=== PATIENT | female | born 1990 | race American Indian/Alaskan Native ===

== ENCOUNTER 2024-01-22 15:03 | Emergency (ER) | payer MEDICAID ==
[2024-01-22 15:14] VITALS: BP 124/65; PULSE 87
[2024-01-22 15:46] LABS: HEMATOCRIT 23.8 % (37.0-47.0); HEMOGLOBIN 8.2 g/dL (12.0-16.0); MEAN CORPUSCULAR HEMOGLOBIN 28.6 pg (27.0-34.0); MEAN CORPUSCULAR HGB CONC 34.5 g/dL (33.0-35.0); MEAN CORPUSCULAR VOLUME 82.9 fL (80-100); PLATELET COUNT,PLT 164 10^3/uL (150-450); RED BLOOD CELL COUNT 2.87 10^6/uL (4.2-5.4); WHITE BLOOD CELL COUNT,WBC 31.3 10^3/uL (5.0-10.0)
[2024-01-22 15:54] LABS: BASOPHILS PERCENT AUTO 0.4 % (0.0-1.0); EOSINOPHILS PERCENT AUTO 3.3 % (1.0-3.0); LYMPHOCYTES PERCENT AUTO 7.2 % (20.5-50.1); NEUTROPHILS PERCENT AUTO 83.1 % (42.2-75.2)
[2024-01-22 16:11] LABS: B-TYPE NATRIURETIC PEPTIDE,BNP 1250 pg/ml (0-100)
[2024-01-22] MEDS: Sodium Chloride 0.9% 10 ML Syringe FLUSH PRN (16:11)
[2024-01-22 16:15] LABS: BAND PERCENT MAN 6 %; EOSINOPHILS PERCENT MAN 5 % (1-3); LACTIC ACID 1.8 mmol/L (0.4-2.0); LYMPHOCYTES PERCENT MAN 10 % (20-50); MONOCYTES PERCENT MAN 2 % (2-8); SEG NEUTROPHILS PERCENT MAN 77 % (42-75)
[2024-01-22 16:22] LABS: INR 2.9 (0.9-1.2); PROTHROMBIN TIME 28.2 SEC (9.0-12.0); PTT,PARTIAL THROMBOPLSTIN TIME 40.5 SEC (22.0-34.0)
[2024-01-22 16:34] LABS: POTASSIUM,K 3.6 mmol/L (3.5-5.1)
[2024-01-22 17:04] LABS: APPEARANCE,URINE CLEAR (CLEAR); BILIRUBIN,URINE LARGE (NEGATIVE); COLOR,URINE DARK YELLOW (YELLOW); GLUCOSE,URINE 100 (NEGATIVE); KETONES,URINE NEGATIVE (NEGATIVE); LEUKOCYTE ESTERASE,URINE NEGATIVE (NEGATIVE); NITRITE,URINE NEGATIVE (NEGATIVE); OCCULT BLOOD,URINE NEGATIVE (NEGATIVE); PH,URINE 5.5 (5.0-9.0); PROTEIN,URINE 30 (NEGATIVE); UROBILINOGEN,URINE 0.2 mg/dL (0.2-1.0)
[2024-01-22 17:09] LABS: AMPHETAMINES,URINE POSITIVE (NEGATIVE); BARBITURATES,URINE POSITIVE (NEGATIVE); BENZODIAZEPINE,URINE NEGATIVE (NEGATIVE); MDMA (ECSTASY), URINE NEGATIVE (NEGATIVE); METHADONE,URINE NEGATIVE (NEGATIVE); METHAMPHETAMINES,URINE NEGATIVE (NEGATIVE); OPIATES,URINE NEGATIVE (NEGATIVE); OXYCODONE,URINE NEGATIVE (NEGATIVE); PHENCYCLIDINE,URINE NEGATIVE (NEGATIVE); TCA,URINE NEGATIVE (NEGATIVE)
[2024-01-22 17:29] LABS: ALBUMIN 3.1 g/dL (3.4-5.0); BILIRUBIN TOTAL 41.5 mg/dL (0.2-1.0); CALCIUM 8.9 mg/dL (8.5-10.1)
[2024-01-22 17:30] LABS: ALANINE AMINOTRANSFERASE,ALT 40 U/L (14-59); ALKALINE PHOSPHATASE 119 U/L (46-116); ASPARTATE AMNIOTRANSFERASE,AST 118 U/L (15-37); C-REACTIVE PROTEIN 6.16 ng/dL (<=0.50); CARBON DIOXIDE,CO2 20 mmol/L (21-32); CHLORIDE,CL 106 mmol/L (98-107); ETHANOL BLOOD MEDICAL < 3 mg/dL (0); LIPASE > 250 U/L (16-77); MAGNESIUM 1.6 mg/dL (1.8-2.4); PHOSPHORUS 3.7 mg/dL (2.6-4.7); SODIUM,NA 143 mmol/L (136-145)
[2024-01-22 17:31] LABS: AMYLASE 254 U/L (25-115); BLOOD UREA NITROGEN,BUN 72 mg/dL (7-18); BUN/CREATININE RATIO 26.2 (No establ ref range); CREATININE 2.75 mg/dL (0.55-1.02); EST CRCL DRUG DOSING (CG) 28.03 mL/min; ESTIMATED GFR 23 mL/min (>=60); GLUCOSE RANDOM 112 mg/dL (70-99)
[2024-01-22 17:32] LABS: A/G RATIO 0.74; ANION GAP 20.3 mEq/L (7-13); PROTEIN TOTAL,TP 7.3 g/dL (6.4-8.2)
[2024-01-22 17:40] LABS: AMORPHOUS SEDIMENT,URINE FEW /HPF (NOT SEEN); BACTERIA,URINE FEW /HPF (0-FEW/HPF); EPITHELIAL CELLS,URINE FEW /HPF (NOT SEEN); MUCUS,URINE RARE /LPF (NOT SEEN); RBC,URINE NOT SEEN /HPF (0-5); WBC,URINE 0-5 /HPF (0-5/HPF)
[2024-01-22] MEDS: Piperacillin/Tazobactam 3.375 GM in Sodium Chloride 0.9% 100 ML IV ONE (17:47)
[2024-01-22] MEDS: Levofloxacin 250 MG Tab PO ONE (19:01)
[2024-01-22] MEDS: Bacitracin Oint 1 GM U/D Packet TOP ONE (19:06)
== END 2024-01-22 19:07 | disposition home or self-care (01) ==
LOC: DL.ED 15:03
DX: J18.9 Pneumonia, unspecified organism (principal); N17.9 Acute kidney failure, unspecified; N18.6 End stage renal disease; Z91.018 Allergy to other foods; Z88.8 Allergy status to other drugs, medicaments and biological substances; Z90.49 Acquired absence of other specified parts of digestive tract
CPT/HCPCS: 36415; 71045; 80053; 80305; 80307; 81001; 81025; 82140; 82150; 83605; 83690; 83735; 83880; 84100; 84145; 85025; 85610; 85730; 86140; 87040; 96365; 99284; 99285; A9270; J2543; J3490

== ENCOUNTER 2024-02-10 14:11 | Inpatient (IN) | payer MEDICAID ==
[2024-02-10] MEDS ORDERED: Sodium Chloride 0.9% 10 ML Syringe FLUSH PRN (14:24)
[2024-02-10 14:46] LABS: MEAN CORPUSCULAR HEMOGLOBIN 30.4 pg (27.0-34.0); MEAN CORPUSCULAR HGB CONC 36.5 g/dL (33.0-35.0); MEAN CORPUSCULAR VOLUME 83.5 fL (80-100); PLATELET COUNT,PLT 109 10^3/uL (150-450); WHITE BLOOD CELL COUNT,WBC 39.4 10^3/uL (5.0-10.0)
[2024-02-10 14:51] LABS: BASOPHILS PERCENT AUTO 0.2 % (0.0-1.0); EOSINOPHILS PERCENT AUTO 0.9 % (1.0-3.0); HEMATOCRIT 19.2 % (37.0-47.0); MONOCYTES PERCENT AUTO 7.7 % (2-8); NEUTROPHILS PERCENT AUTO 81.2 % (42.2-75.2)
[2024-02-10 15:02] LABS: INR 3.1 (0.9-1.2); PROTHROMBIN TIME 29.5 SEC (9.0-12.0)
[2024-02-10 15:13] LABS: LACTIC ACID 1.6 mmol/L (0.4-2.0)
[2024-02-10 15:15] LABS: PTT,PARTIAL THROMBOPLSTIN TIME 52.9 SEC (22.0-34.0)
[2024-02-10 15:21] LABS: ALANINE AMINOTRANSFERASE,ALT 24 U/L (14-59); ALBUMIN 1.7 g/dL (3.4-5.0); ALKALINE PHOSPHATASE 152 U/L (46-116); ANION GAP 28.9 mEq/L (7-13); ASPARTATE AMNIOTRANSFERASE,AST 86 U/L (15-37); CALCIUM 6.3 mg/dL (8.5-10.1); CARBON DIOXIDE,CO2 11 mmol/L (21-32); CHLORIDE,CL 98 mmol/L (98-107); CREATININE 10.44 mg/dL (0.55-1.02); EST CRCL DRUG DOSING (CG) 7.38 mL/min; GLUCOSE RANDOM 96 mg/dL (70-99); POTASSIUM,K 4.9 mmol/L (3.5-5.1); PROTEIN TOTAL,TP 5.2 g/dL (6.4-8.2); SODIUM,NA 133 mmol/L (136-145)
[2024-02-10 15:32] LABS: A/G RATIO 0.49; BUN/CREATININE RATIO 14.4 (No establ ref range); ESTIMATED GFR 5 mL/min (>=60)
[2024-02-10 15:33] LABS: BILIRUBIN TOTAL 35.3 mg/dL (0.2-1.0); ETHANOL BLOOD MEDICAL < 3 mg/dL (0); LIPASE > 250 U/L (16-77)
[2024-02-10] MEDS: Morphine 4 MG/ML Syringe IVPUSH ONE (16:02)
[2024-02-10] MEDS: diphenhydrAMINE 50 MG/ML SDV IV ONE (16:02)
[2024-02-10] MEDS: Ondansetron 4 MG/2 ML SDV IV ONE (16:02)
[2024-02-10 16:59] LABS: ACANTHOCYTES 3+ MARKED; ANISOCYTOSIS 3+ MARKED; BAND PERCENT MAN 1 %; BASOPHILS PERCENT MAN 1; EOSINOPHILS PERCENT MAN 2 % (1-3); LYMPHOCYTES PERCENT MAN 12 % (20-50); MONOCYTES PERCENT MAN 4 % (2-8); SCHISTOCYTES 2+ MODERATE; SEG NEUTROPHILS PERCENT MAN 80 % (42-75); TARGET CELLS 2+ MODERATE
[2024-02-10 17:00] LABS: BURR CELLS 3+ MARKED
[2024-02-10 17:01] LABS: PLATELET COUNT ESTIMATE DECREASED
[2024-02-10] MEDS ORDERED: Ondansetron 4 MG/2 ML SDV IVPUSH PRN (17:24)
[2024-02-10] MEDS ORDERED: LORazepam 2 MG/ML SDV IVPUSH PRN (17:26)
[2024-02-10] MEDS: Furosemide 40 MG/4 ML VIAL IV ONE (17:32)
[2024-02-10] MEDS: Scopalamine 1mg/3day Transdermal Patch TOP ONE (18:16)
[2024-02-10 19:13] VITALS: BP 94/42; PULSE 85
[2024-02-10] MEDS ORDERED: Metoclopramide 10 MG/2 ML SDV IVPUSH PRN (19:37)
[2024-02-11] MEDS: Morphine 2 MG/ML SYRINGE IVPUSH PRN (05:13)
[2024-02-11 10:21] LABS: BLOOD UREA NITROGEN,BUN > 150 mg/dL (7-18)
[2024-02-11] MEDS: LORazepam 2 MG/ML SDV IVPUSH PRN (14:43)
[2024-02-12] MEDS: Atropine 1% Ophth Soln 5 ML Bottle SL PRN (04:42)
[2024-02-13] MEDS ORDERED: CHECK SCOPOLAMINE TRDERM ONE (17:45)
== END 2024-02-12 07:18 | disposition expired | DRG 951 ==
LOC: DL.ED 14:11 → DL.MS 16:16
PROVIDERS: ADMIT Internal Medicine; ATTEND Internal Medicine
DX: Z51.5 Encounter for palliative care (principal); D65 Disseminated intravascular coagulation [defibrination syndrome]; K76.7 Hepatorenal syndrome; E43 Unspecified severe protein-calorie malnutrition; K85.20 Alcohol induced acute pancreatitis without necrosis or infection; N17.9 Acute kidney failure, unspecified; N18.5 Chronic kidney disease, stage 5; I50.30 Unspecified diastolic (congestive) heart failure; I13.0 Hypertensive heart and chronic kidney disease with heart failure and stage 1 through stage 4 chronic kidney disease, or unspecified chronic kidney disease; E87.1 Hypo-osmolality and hyponatremia; E87.20 Acidosis, unspecified; E72.20 Disorder of urea cycle metabolism, unspecified; Z66 Do not resuscitate; K72.10 Chronic hepatic failure without coma; I48.91 Unspecified atrial fibrillation; K70.30 Alcoholic cirrhosis of liver without ascites; K06.8 Other specified disorders of gingiva and edentulous alveolar ridge; K76.82 Hepatic encephalopathy; D63.1 Anemia in chronic kidney disease; I48.0 Paroxysmal atrial fibrillation; F41.9 Anxiety disorder, unspecified; D72.829 Elevated white blood cell count, unspecified; D50.9 Iron deficiency anemia, unspecified; I86.4 Gastric varices; R73.9 Hyperglycemia, unspecified; E83.51 Hypocalcemia; E88.09 Other disorders of plasma-protein metabolism, not elsewhere classified; I95.9 Hypotension, unspecified; Z88.8 Allergy status to other drugs, medicaments and biological substances; Z91.018 Allergy to other foods; Z79.899 Other long term (current) drug therapy; Z79.2 Long term (current) use of antibiotics; Z87.820 Personal history of traumatic brain injury; Z90.49 Acquired absence of other specified parts of digestive tract; Z68.33 Body mass index [BMI] 33.0-33.9, adult
CPT/HCPCS: 36415; 80053; 80307; 82140; 83605; 83690; 85025; 85610; 85730; 96374; 96375; 99285-25; A9270-GY; J1200; J2060; J2270; J2405